=== PATIENT | male | born 1945 | race Caucasian/White ===

== ENCOUNTER 2020-03-09 07:46 | Inpatient (IN) | payer OTHER, MEDICARE ==
[2020-03-09] MEDS ORDERED: ACETAMINOPHEN TAB 325 MG TAB PO PRN (08:03)
[2020-03-09] MEDS ORDERED: NALOXONE 0.4 MG/ML 1 ML VIAL IV PRN (08:03)
[2020-03-09] MEDS ORDERED: IBUPROFEN 400 MG TAB PO PRN (08:03)
[2020-03-09] MEDS ORDERED: HYDROmorphone 0.5 MG/0.5 ML SYRINGE IVP PRN (08:03)
[2020-03-09 08:11] LABS: Basophils % (A) 0 %; Eosinophils # (A) 0.1 k/uL (0-0.7); Eosinophils % (A) 1 %; HCT 38.2 % (39.0-53.0); HGB 12.4 gm/dL (13.0-17.5); Lymphocytes # (A) 1.1 k/uL (1.0-4.8); Lymphocytes % (A) 12 %; MCH 32.2 pg (25.0-35.0); MCHC 32.5 g/dL (31.0-37.0); MCV 99.2 fL (80.0-100.0); Monocytes # (A) 0.6 k/uL (0-1.0); Monocytes % (A) 7 %; Neutrophils # (A) 6.5 k/uL (1.3-7.7); Neutrophils % (A) 77 %; Platelet Count 138 k/uL (150-450); RBC 3.85 m/uL (4.30-5.90); RDW 13.8 % (11.5-15.5); WBC 8.5 k/uL (3.8-10.6)
--- NOTE | 2020-03-09 08:14 | ED ---
General Adult HPI - General Chief complaint: Shortness of Breath Stated complaint: Pulmonary embolism, Bradycardia, SOB Time Seen by Provider: 03/09/20 07:49 Source: EMS, RN notes reviewed, old records reviewed Mode of arrival: EMS Limitations: no limitations - History of Present Illness Initial comments: 74-year-old male presenting as a transfer from outside facility for evaluation treatment of pulmonary embolism. Patient woke from sleep with pleuritic chest pain. He had received a workup including CT angiography which showed a right lower lobe pulmonary emboli. Patient was initiated on Lovenox and transferred for further evaluation and treatment. He denies cough or fever. He denies central chest pain. He states his pain is much better after medication. - Related Data Allergies Allergy/AdvReac Type Severity Reaction Status Date / Time No Known Allergies Allergy Verified 03/09/20 07:57 Review of Systems ROS Statement: Those systems with pertinent positive or pertinent negative responses have been documented in the HPI. ROS Other: All systems not noted in ROS Statement are negative. Past Medical History Past Medical History: Hypertension, Myocardial Infarction ([place]), Pulmonary Embolus ([place]) History of Any Multi-Drug Resistant Organisms: None Reported Past Surgical History: Appendectomy, Back Surgery, Heart Catheterization With Stent, Tonsillectomy Past Psychological History: No Psychological Hx Reported Smoking Status: Never smoker Past Alcohol Use History: None Reported Past Drug Use History: None Reported General Exam Limitations: no limitations General appearance: alert, in no apparent distress Head exam: Present: atraumatic, normocephalic Eye exam: Present: normal appearance, PERRL ENT exam: Present: normal exam Neck exam: Present: normal inspection. Absent: tenderness, meningismus Respiratory exam: Present: normal lung sounds bilaterally. Absent: respiratory distress, wheezes Cardiovascular Exam: Present: regular rate, normal rhythm GI/Abdominal exam: Present: soft. Absent: distended, tenderness, guarding, rebound Extremities exam: Present: normal inspection, normal capillary refill Neurological exam: Present: alert, oriented X3, CN II-XII intact. Absent: motor sensory deficit Psychiatric exam: Present: normal affect, normal mood Skin exam: Present: warm, dry, intact. Absent: cyanosis, diaphoretic Course Vital Signs 03/09/20 03/09/20 07:49 08:09 Temperature 98.0 F Pulse Rate 57 L 63 Respiratory 18 18 Rate Blood Pressure 139/86 119/75 O2 Sat by Pulse 98 99 Oximetry EKG Findings - EKG Comments: EKG Findings:: EKG: Sinus bradycardia, no ST segment elevation, rate of 54, ID interval 182 QRS duration 90, QTC 421 Medical Decision Making - Medical Decision Making 74-year-old male who had presented from outside hospital as transfer for pulmonary emboli. Patient had return laboratory testing performed which showed a white blood cell count 8.5, hemoglobin 12.9, platelets were 157. He had negative troponin, normal electrolytes, normal kidney function. He was given Lovenox. He will be continued on Lovenox. He will be admitted to internal medicine at this institution. - Lab Data Result diagrams: 03/09/20 08:02 Lab Results 03/09/20 Range/Units 08:02 WBC 8.5 (3.8-10.6) k/uL RBC 3.85 L (4.30-5.90) m/uL Hgb 12.4 L (13.0-17.5) gm/dL Hct 38.2 L (39.0-53.0) % MCV 99.2 (80.0-100.0) fL MCH 32.2 (25.0-35.0) pg MCHC 32.5 (31.0-37.0) g/dL RDW 13.8 (11.5-15.5) % Plt Count 138 L (150-450) k/uL Neutrophils % 77 % Lymphocytes % 12 % Monocytes % 7 % Eosinophils % 1 % Basophils % 0 % Neutrophils # 6.5 (1.3-7.7) k/uL Lymphocytes # 1.1 (1.0-4.8) k/uL Monocytes # 0.6 (0-1.0) k/uL Eosinophils # 0.1 (0-0.7) k/uL Basophils # 0.0 (0-0.2) k/uL Disposition Clinical Impression: Pulmonary embolism Disposition: ADMITTED IP TO THIS [facility] Condition: Stable Is patient prescribed a controlled substance at d/c from ED?: No Referrals: Boy Mercado MD [Primary Care Provider] - 1-2 days Decision to Admit Reason: Admit from EC Decision Date: 03/09/20 Decision Time: 08:19
[2020-03-09] MEDS ORDERED: ENOXAPARIN 80 MG/0.8 ML SYRINGE SQ ONE (08:15)
[2020-03-09 08:27] LABS: ALT 27 U/L (4-49); AST 28 U/L (17-59); African American GFR (CKD) >90 (>60 ml/min/1.73 sqM); Albumin 3.8 g/dL (3.5-5.0); Alkaline Phosphatase 64 U/L (38-126); Anion Gap 3 mmol/L; Blood Urea Nitrogen 16 mg/dL (9-20); Calcium 8.7 mg/dL (8.4-10.2); Carbon Dioxide 29 mmol/L (22-30); Chloride 106 mmol/L (98-107); Glucose 121 mg/dL (74-99); Magnesium 1.9 mg/dL (1.6-2.3); Non-African American GFR(CKD) 81 (>60 ml/min/1.73 sqM); Potassium 4.9 mmol/L (3.5-5.1); Sodium 138 mmol/L (137-145); Total Protein 6.3 g/dL (6.3-8.2)
[2020-03-09 08:28] LABS: Partial Thromboplastin Time 24.8 sec (22.0-30.0); Prothrombin Time 10.1 sec (9.0-12.0)
[2020-03-09 08:42] VITALS: RESP 18
--- NOTE | 2020-03-09 12:56 | ECHOF ---
Referral Reason:Rule out heart disease MEASUREMENTS -------- HEIGHT: 152.4 cm WEIGHT: 81.6 kg BP: RVIDd: 3.5 cm (< 3.3) IVSd: 1.1 cm (0.6 - 1.1) LVIDd: 4.9 cm (3.9 - 5.3) LVPWd: 1.4 cm (0.6 - 1.1) IVSs: 1.5 cm LVIDs: 3.7 cm LVPWs: 1.2 cm LA Diam: 4.2 cm (2.7 - 3.8) LAESV Index (A-L): 35.63 ml/m Ao Diam: 3.3 cm (2.0 - 3.7) AV Cusp: 1.6 cm (1.5 - 2.6) MV EXCURSION: 22.560 mm (> 18.000) MV EF SLOPE: 108 mm/s (70 - 150) EPSS: 1.1 cm MV E Kostas: 0.61 m/s MV DecT: 161 ms MV A Kostas: 0.68 m/s MV E/A Ratio: 0.89 RAP: 5.00 mmHg RVSP: 28.73 mmHg FINDINGS -------- Sinus rhythm. This was a technically good study. LV size, wall thickness and systolic function are normal, with an EF greater than 55%. The left bob tricular size is normal. The right ventricle is normal in size. The left atrial size is normal. The right atrial size is normal. Trace to mild aortic regurgitation. Mild mitral annular calcification present. Mild mitral regurgitation is present. Mild tricuspid regurgitation present. Right ventricular systolic pressure is normal at < 35 mmHg. There is no pericardial effusion. CONCLUSIONS -------- 1. LV size, wall thickness and systolic function are normal, with an EF greater than 55%. 2. The left ventricular size is normal. 3. The right ventricle is normal in size. 4. The left atrial size is normal. 5. The right atrial size is normal. 6. Trace to mild aortic regurgitation. 7. Mild mitral annular calcification present. 8. Mild mitral regurgitation is present. 9. Mild tricuspid regurgitation present. 10. There is no pericardial effusion. IMMIGRATION SPECIALIST: Kassidy Gamino RDCS
--- NOTE | 2020-03-09 15:09 | P.HPIM ---
History of Present Illness This is a pleasant 74 years old male with past medical history of hypertension, coronary artery disease status post stent placement x2 with Dr. osei on 2012 and 2013 . He has a new PCP Dr. Ospina at [facility] patient was transfer from [facility] for PE. 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 No GI or urinary symptoms. No fever He denies a smoking, alcohol or illicit drugs. Vitals looked normal with blood pressure 131/76, heart rate 53, temperature is 98.2 and he is saturating 98% on 2 L oxygen via nasal cannula. Unremarkable CBC, INR and BMP. Liver enzymes not elevated. And troponin is negative less than 0.012. Reviewing chart and documents from [facility], EKG showing normal sinus rhythm at [address]-T changes, WBCs 8.5K, hemoglobin 12.9, platelets 150 7K, sodium 139, potassium 4.4, creatinine 1.0, magnesium 2. 0 Viral panel not detected Review of Systems CONSTITUTIONAL: No fever, no malaise, no fatigue. HEENT: No recent visual problems or hearing problems. Denied any sore throat. CARDIOVASCULAR: No orthopnea, PND, no palpitations, no syncope. PULMONARY: No shortness of breath, no cough, no hemoptysis. GASTROINTESTINAL: No diarrhea, no nausea, no vomiting, no abdominal pain. Normoactive bowel sounds. NEUROLOGICAL: No headaches, no weakness, no numbness. HEMATOLOGICAL: Denies any bleeding or petechiae. GENITOURINARY: Denies any burning micturition, frequency, or urgency. MUSCULOSKELETAL/RHEUMATOLOGICAL: Denies any joint pain, swelling, or any muscle pain. ENDOCRINE: Denies any polyuria or polydipsia. Past Medical History Past Medical History: Hypertension, Myocardial Infarction ([place]), Pulmonary Embolus ([place]) Last Myocardial Infarction Date:: 04/25/2013 History of Any Multi-Drug Resistant Organisms: None Reported Past Surgical History: Appendectomy, Back Surgery, Heart Catheterization With Stent, Tonsillectomy Date of Last Stent Placement:: 04/25/2013 Past Psychological History: No Psychological Hx Reported Additional Psychological History / Comment(s): lives with Smoking Status: Never smoker Past Alcohol Use History: None Reported Past Drug Use History: None Reported - Past Family History Mother Family Medical History: Pulmonary Embolus Medications and Allergies Home Medications Medication Instructions Recorded Confirmed Type Aspirin EC [Ecotrin Low Dose] 81 mg PO DAILY 03/09/20 03/09/20 History Atorvastatin Calcium [Lipitor] 40 mg PO HS 03/09/20 03/09/20 History Cholecalciferol [Vitamin D3 (25 2,000 unit PO DAILY 03/09/20 03/09/20 History Mcg = 1000 Iu)] Diclofenac Sodium [Voltaren Gel] 2 gram TOPICAL QID 03/09/20 03/09/20 History Folic Acid 0.8 mg PO DAILY 03/09/20 03/09/20 History Metoprolol Tartrate 25 mg PO BID 03/09/20 03/09/20 History Multivit-Min/FA/Lycopen/Lutein 1 tab PO DAILY 03/09/20 03/09/20 History [Centrum Silver Tablet] Nitroglycerin Sl Tabs [Nitrostat] 0.4 mg SUBLINGUAL Q5M PRN 03/09/20 03/09/20 History [place]-3 Fatty Acids/Fish Oil [Fish 1 cap PO DAILY 03/09/20 03/09/20 History Oil 1,000 mg Softgel] Rivaroxaban [Xarelto] 15 mg PO BID-W/MEALS #60 tab 03/09/20 Rx Super B Complex 1 tab PO DAILY 03/09/20 03/09/20 History Tamsulosin HCl [Flomax] 0.8 mg PO DAILY 03/09/20 03/09/20 History metHOTREXate sodium [Methotrexate] 15 mg PO TU 03/09/20 03/09/20 History predniSONE 5 mg PO DAILY 03/09/20 03/09/20 History Allergies Allergy/AdvReac Type Severity Reaction Status Date / Time No Known Allergies Allergy Verified 03/09/20 08:43 Physical Exam Vitals: Vital Signs Temp Pulse Pulse Resp BP BP Pulse Ox 03/09/20 09:21 98.2 F 53 L 131/76 98 03/09/20 08:09 63 18 119/75 99 03/09/20 07:49 98.0 F 57 L 18 139/86 98 Intake and Output 03/08/20 03/09/20 03/09/20 22:59 06:59 14:59 Other: Weight 81.647 kg GENERAL: The patient is alert and oriented x3, not in any acute distress. Well developed, well nourished. HEENT: Pupils are round and equally reacting to light. EOMI. No scleral icterus. No conjunctival pallor. Normocephalic, atraumatic. No pharyngeal erythema. No thyromegaly. CARDIOVASCULAR: S1 and S2 present. No murmurs, rubs, or gallops. PULMONARY: Chest is clear to auscultation, no wheezing or crackles. ABDOMEN: Soft, nontender, nondistended, normoactive bowel sounds. No palpable organomegaly. MUSCULOSKELETAL: No joint swelling or deformity. EXTREMITIES: No cyanosis, clubbing, or pedal edema. NEUROLOGICAL: Gross neurological examination did not reveal any focal deficits. SKIN: No rashes. No petechiae Results CBC & Chem 7: 03/09/20 08:02 03/09/20 08:02 Labs: Abnormal Lab Results - Last 24 Hours (Table) 03/09/20 03/09/20 Range/Units 08:02 08:02 RBC 3.85 L (4.30-5.90) m/uL Hgb 12.4 L (13.0-17.5) gm/dL Hct 38.2 L (39.0-53.0) % Plt Count 138 L (150-450) k/uL Glucose 121 H (74-99) mg/dL Thrombosis Risk Factor Assmnt - Choose All That Apply Any of the Below Risk Factors Present?: Yes Each Factor Represents 1 point: Medical pt on bed rest Other Risk Factors: Yes Each Risk Factor Represents 2 Points: Age 61-74 years Each Risk Factor Represents 3 Points: Family history of DVT/PE Other congenital or acquired thrombophilia - If yes, enter type in comment: No Thrombosis Risk Factor Assessment Total Risk Factor Score: 6 Thrombosis Risk Factor Assessment Level: High Risk Assessment and Plan Assessment: Acute pulmonary embolism Hypertension History of coronary artery disease status post stent 2 Plan: This is a pleasant 74 years old male who presents with PE. Continue with a blood thinner. Check echocardiogram. Pulmonary consult. Continue with xarelto and find the copay Labs and medication were reviewed.. Continue same treatment. Continue with symptomatic treatment. Resume home medication. Monitor lytes and vitals. DVT and GI prophylaxis. Further recommendations depends on the clinical course of the patient DVT prophylaxis: xarelto GI Prophylaxis: Pepcid Prognosis is guarded
[2020-03-09 15:30] VITALS: BP 133/84; PULSE 64; TEMP 98.1
--- NOTE | 2020-03-09 16:47 | P.CNPUL ---
History of Present Illness Consult date: 03/09/20 Requesting physician: Jian Vasquez Reason for consult: chest pain, abnormal CXR/CT Chief complaint: Right-sided pleuritic chest pain History of present illness: This is a very pleasant 74-year-old gentleman who follows with the [facility] system out of bed ask. He has a history of rheumatoid arthritis utilizing methotrexate and prednisone 5 mg daily, hyperlipidemia, hypertension, coronary artery disease with previous stent placement in 2003 in 2012, BPH He has a remote history of chronic tobacco dependence. He presented to [facility] early this morning after waking with left-sided chest discomfort. The pain was quite sharp and stabbing in nature. Worsening with deep breathing. Mostly behind his scapula and shoulder. CT angiogram at [place] revealed a right lower lobe pulmonary emboli. Nothing noted in the left. He was initiated on Lovenox 80 mg subcu and transferred here for further evaluation. He is seen today in consultation on the regular medical floor. He is awake and alert in no acute distress. His pain has subsided somewhat. He denies any significant s hortness of breath, cough or congestion. No hemoptysis. He denies any recent prolonged travels, recent surgery, recent injury. No previous history of pulmonary embolism or DVT. No family history of PE. This appears to be an unprovoked event. Echocardiogram reveals no evidence of right heart strain. He has preserved left ventricular systolic function with ejection fraction greater than 55%. White count 8.5. Humulin 12.4. Platelet count 138. Sodium 138. Potassium 4.9. Creatinine 0.93. GFR 81. Troponin negative. Review of Systems REVIEW OF SYSTEMS: CONSTITUTIONAL: Denies any recent significant weight loss or weight gain. EYES: Denies change in vision. EARS, NOSE, MOUTH, THROAT: Denies headaches, denies sore throat. CARDIOVASCULAR: Left-sided pleuritic chest pain, no palpitations or syncopal episodes. RESPIRATORY: Denies shortness of breath, cough, congestion or hemoptysis. GASTROINTESTINAL: Denies change in appetite, denies abdominal pain GENITOURINARY: Denies hematuria, denies infections. MUSKULOSKELETAL: Denies pain, denies swelling. INTEGUMENTARY: Denies rash, denies eczema. NEUROLOGICAL: Denies recent memory loss, no recent seizure activity. PSYCHIATRIC: Denies anxiety, denies depression. HEMATOLOGIC/LYMPHATIC: Denies anemia, denies enlarged lymph nodes. Past Medical History Past Medical History: Hypertension, Myocardial Infarction ([place]), Pulmonary Embolus ([place]) Last Myocardial Infarction Date:: 04/25/2013 History of Any Multi-Drug Resistant Organisms: None Reported Past Surgical History: Appendectomy, Back Surgery, Heart Catheterization With Stent, Tonsillectomy Date of Last Stent Placement:: 04/25/2013 Past Psychological History: No Psychological Hx Reported Additional Psychological History / Comment(s): lives with Smoking Status: Never smoker Past Alcohol Use History: None Reported Past Drug Use History: None Reported - Past Family History Mother Family Medical History: Pulmonary Embolus Medications and Allergies Home Medications Medication Instructions Recorded Confirmed Type Aspirin EC [Ecotrin Low Dose] 81 mg PO DAILY 03/09/20 03/09/20 History Atorvastatin Calcium [Lipitor] 40 mg PO HS 03/09/20 03/09/20 History Cholecalciferol [Vitamin D3 (25 2,000 unit PO DAILY 03/09/20 03/09/20 History Mcg = 1000 Iu)] Folic Acid 0.8 mg PO DAILY 03/09/20 03/09/20 History Metoprolol Tartrate 25 mg PO BID 03/09/20 03/09/20 History Multivit-Min/FA/Lycopen/Lutein 1 tab PO DAILY 03/09/20 03/09/20 History [Centrum Silver Tablet] Nitroglycerin Sl Tabs [Nitrostat] 0.4 mg SUBLINGUAL Q5M PRN 03/09/20 03/09/20 History [place]-3 Fatty Acids/Fish Oil [Fish 1 cap PO DAILY 03/09/20 03/09/20 History Oil 1,000 mg Softgel] Rivaroxaban [Xarelto] 15 mg PO BID-W/MEALS #60 tab 03/09/20 Rx Super B Complex 1 tab PO DAILY 03/09/20 03/09/20 History Tamsulosin HCl [Flomax] 0.8 mg PO DAILY 03/09/20 03/09/20 History metHOTREXate sodium [Methotrexate] 15 mg PO TU 03/09/20 03/09/20 History predniSONE 5 mg PO DAILY 03/09/20 03/09/20 History Allergies Allergy/AdvReac Type Severity Reaction Status Date / Time No Known Allergies Allergy Verified 03/09/20 08:43 Physical Exam Vitals: Vital Signs Temp Pulse Pulse Resp BP BP Pulse Ox 03/09/20 15:00 98.1 F 64 133/84 99 03/09/20 09:21 98.2 F 53 L 131/76 98 03/09/20 08:09 63 18 119/75 99 03/09/20 07:49 98.0 F 57 L 18 139/86 98 Intake and Output 03/09/20 03/09/20 03/09/20 06:59 14:59 22:59 Other: # Voids 1 Weight 81.647 kg GENERAL EXAM: Alert, very pleasant 74-year-old gentleman, on 2 L nasal cannula, comfortable in no apparent distress. HEAD: Normocephalic. EYES: Normal reaction of pupils, equal size. NOSE: Clear with pink turbinates. THROAT: No erythema or exudates. NECK: No masses, no JVD. CHEST: No chest wall deformity. LUNGS: Equal air entry with no crackles, wheeze, rhonchi or dullness. CVS: S1 and S2 normal with no audible murmur, regular rhythm. ABDOMEN: No hepatosplenomegaly, normal bowel sounds, no guarding or rigidity. SPINE: No scoliosis or deformity SKIN: No rashes CENTRAL NERVOUS SYSTEM: No focal deficits, tone is normal in all 4 extremities. EXTREMITIES: There is no peripheral edema. No clubbing, no cyanosis. Peripheral pulses are intact. Results - Laboratory Findings CBC and BMP: 03/09/20 08:02 03/09/20 08:02 PT/INR, D-dimer PT 10.1 sec (9.0-12.0) 03/09/20 08:02 INR 1.0 (<1.2) 03/09/20 08:02 Abnormal lab findings: Abnormal Labs 03/09/20 03/09/20 08:02 08:02 RBC 3.85 L Hgb 12.4 L Hct 38.2 L Plt Count 138 L Glucose 121 H Assessment and Plan Assessment: 1 Acute pulmonary embolism, unprovoked 2 Pleurisy 3 History of coronary artery disease with previous stent placement 4 Hypertension 5 Hyperlipidemia 6 BPH Plan: The patient was seen and evaluated by Dr. Weller Records reviewed from [facility] and could be discharged home Currently on room air Will need lifelong anticoagulation as PE appears unprovoked Follow-up closely with his PCP I, the cosigning physician, performed a history & physical examination of the patient. Lungs sounds are clear. Maintaining good O2 saturations in the 90s on room air. I discussed the assessment and plan of care with my nurse practitioner, Rebecca Graff. I attest to the above note as dictated by her. Time with Patient: Greater than 30
[2020-03-09] MEDS ORDERED: RIVAROXABAN 15 MG TAB PO SCH (17:30)
[2020-03-09] MEDS ORDERED: ENOXAPARIN 80 MG/0.8 ML SYRINGE SQ SCH (21:00)
== END 2020-03-09 17:00 | disposition home or self-care (01) | DRG 176 ==
LOC: EC 07:46 → 4SSUR 08:03
PROVIDERS: ADMIT Hospitalist; ATTEND Hospitalist
DX: I26.99 Other pulmonary embolism without acute cor pulmonale (principal); M06.9 Rheumatoid arthritis, unspecified; E78.5 Hyperlipidemia, unspecified; I10 Essential (primary) hypertension; I25.10 Atherosclerotic heart disease of native coronary artery without angina pectoris; I25.2 Old myocardial infarction; N40.0 Benign prostatic hyperplasia without lower urinary tract symptoms; R09.1 Pleurisy; Z79.01 Long term (current) use of anticoagulants; Z79.82 Long term (current) use of aspirin; Z79.899 Other long term (current) drug therapy; Z79.52 Long term (current) use of systemic steroids; Z86.711 Personal history of pulmonary embolism; Z87.891 Personal history of nicotine dependence; Z95.5 Presence of coronary angioplasty implant and graft; Z90.49 Acquired absence of other specified parts of digestive tract; Z90.89 Acquired absence of other organs; Z86.79 Personal history of other diseases of the circulatory system
CPT/HCPCS: 36415; 80053; 83735; 84484; 85025; 85610; 85730; 93005; 93306; 99285

== ENCOUNTER → 2021-11-28 | Outpatient (CLI) | payer MEDICARE ==
--- NOTE | 2021-11-28 15:32 | P.SLEEP ---
History of Present Illness DATE: 11/28/2021 CONSULTATION/NEW PATIENT EVALUATION HISTORY OF PRESENT ILLNESS/SLEEP-WAKE EVALUATION: 76year old gentleman had b een evaluated in the sleep center for possible obstructive sleep apnea hypopnea syndrome. SLEEP SCHEDULE: Usually sleep schedule 10 PM to 7:30 AM 7 days a week. FALLING ASLEEP: Usually no problems with the falling to sleep, although patient has TV set and bedroom. DURING SLEEP: Patient usually sleeps on the side position, he snores. Patient wakes up from sleep 3 times with 2 episodes of nocturia. He was told about episodes of stop breathing during the sleep while he was in the hospital. No history of hypnogogical hallucinations, sleep paralysis, or cataplexy. DURING THE DAY/WAKE STATE: In the morning patient wake up tired, has difficulties to pay attention, falling asleep during the day. Patient has problems with memory, concentration, irritability, depression, anxiety, sexual dysfunction. [place] sleepiness scale is increased to 14. Patient take naps at 3 PM. PAST MEDICAL HISTORY: Hypertension, coronary artery disease, hyperlipidemia, rheumatoid arthritis, pulmonary embolism, acid reflux, restless leg symptoms. PAST SURGICAL HISTORY: [place] session, tonsillectomy, appendectomy. MEDICATIONS: Methotrexate 15 mg once a week, atorvastatin 40 mg once a day, metoprolol 25 mg twice a day, Tums Solazine 0.4 mg once a day, aspirin 81 mg once a day, prednisone 2.5 mg once a day, Xarelto 10 mg once a day. SOCIAL HISTORY: Positive for smoking quit in 1989, alcohol consumption none. FAMILY HISTORY: Hypertension, sleep apnea, arthritis. REVIEW OF SYSTEMS: Snoring, multiple awakenings from sleep, sleepiness during the day.. No fevers. No double vision. No recent chest pain. No shortness of breath. No abdominal pain. No bleeding episodes. No blood in urine. No seizure episodes. PHYSICAL EXAMINATION: GENERAL: A pleasant patient without any distress. VITAL SIGNS: BP 135/79 , HR 48 , RR 14 , weight 173.4 pounds, height 5 foot 8- 1/2 inches, body mass index 25.9 . HEENT: PERRLA, EOMI. Evaluation of oropharynx showed tongue protrudes midline, low position of soft palate Mallampati4. NECK: Supple. No JVD. Thyroid is not palpable. 16 inches in circumference. LUNGS: Clear to percussion and to auscultation. Good air exchange. No wheezing or rhonchi. HEART: S1, S2 regular. No murmurs, gallops or rubs. ABDOMEN: Soft and nontender. Bowel sounds are present. No organomegaly appreciated. EXTREMITIES: No clubbing or cyanosis. 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 Cranial nerves 2 to 7 intact. There is no fasciculation or atrophy noted. No focal deficits observed. ASSESSMENT: 1. Snoring, witnessed episodes of sleep apneas, multiple awakenings from sleep, extremely low position of soft palate Mallampati 4. Excessive daytime sleepiness is [place] Sleepiness Scale 14. Obstructive sleep apnea hypopnea syndrome. 2. History of restless leg symptoms. 3 hypertension. 4. Coronary artery disease status post stent insertion. 5 rheumatoid arthritis diagnosed recently. 6. History of pulmonary embolism in 2019. 7. Hyperlipidemia. 8. Acid reflux. 9. Status post tonsillectomy. 10. Status post appendectomy. PLAN: 1. Polysomnography for evaluation of patient's breathing during sleep. 2. CPAP/BiPAP titration if sleep study confirms obstructive sleep apnea- hypopnea syndrome. 3. Preferable position during sleep on the side. 4. No driving if patient feels any sleepiness. Patient is aware of civil and criminal liability for unsafe driving. 5. Sleep hygiene with regular sleep time for at least 7.5-8 hours. 6. Watching weight. Thank you very much for referring this patient for consultation. Sincerely, Carrington Powell MD, PhD, FAASM. Diplomat of [employer], Sleep Medicine Board by [employer] [facility] [place] Past Medical History Past Medical History: Hypertension, Myocardial Infarction ([place]), Pulmonary Embolus ([place]) Last Myocardial Infarction Date:: 04/25/2013 History of Any Multi-Drug Resistant Organisms: None Reported Past Surgical History: Appendectomy, Back Surgery, Heart Catheterization With Stent, Tonsillectomy Date of Last Stent Placement:: 04/25/2013 Past Psychological History: No Psychological Hx Reported Additional Psychological History / Comment(s): lives with Smoking Status: Never smoker Past Alcohol Use History: None Reported Past Drug Use History: None Reported - Past Family History Mother Family Medical History: Pulmonary Embolus Medications and Allergies Home Medications Medication Instructions Recorded Confirmed Type Aspirin EC [Ecotrin Low Dose] 81 mg PO DAILY 03/09/20 03/09/20 History Atorvastatin Calcium [Lipitor] 40 mg PO HS 03/09/20 03/09/20 History Cholecalciferol [Vitamin D3 (25 2,000 unit PO DAILY 03/09/20 03/09/20 History Mcg = 1000 Iu)] Folic Acid 0.8 mg PO DAILY 03/09/20 03/09/20 History Metoprolol Tartrate 25 mg PO BID 03/09/20 03/09/20 History Multivit-Min/FA/Lycopen/Lutein 1 tab PO DAILY 03/09/20 03/09/20 History [Centrum Silver Tablet] Nitroglycerin Sl Tabs [Nitrostat] 0.4 mg SUBLINGUAL Q5M PRN 03/09/20 03/09/20 History Avon-3 Fatty Acids/Fish Oil [Fish 1 cap PO DAILY 03/09/20 03/09/20 History Oil 1,000 mg Softgel] Rivaroxaban [Xarelto] 15 mg PO BID-W/MEALS #60 tab 03/09/20 Rx Super B Complex 1 tab PO DAILY 03/09/20 03/09/20 History Tamsulosin HCl [Flomax] 0.8 mg PO DAILY 03/09/20 03/09/20 History metHOTREXate sodium [Methotrexate] 15 mg PO TU 03/09/20 03/09/20 History predniSONE 5 mg PO DAILY 03/09/20 03/09/20 History Allergies Allergy/AdvReac Type Severity Reaction Status Date / Time No Known Allergies Allergy Verified 03/09/20 08:43 Sleep Note - Sleep Note Sleep Note: Temperature: Pulse Rate: Respiratory Rate: Blood Pressure: SpO2: Height: Weight: BMI: Neck Circumference:
== END ==
LOC: SLEEP 14:36
PROVIDERS: ATTEND Internal Medicine
DX: G47.33 Obstructive sleep apnea (adult) (pediatric) (principal); I10 Essential (primary) hypertension; I25.10 Atherosclerotic heart disease of native coronary artery without angina pectoris; M06.9 Rheumatoid arthritis, unspecified; E78.5 Hyperlipidemia, unspecified; K21.9 Gastro-esophageal reflux disease without esophagitis; Z90.89 Acquired absence of other organs; Z86.711 Personal history of pulmonary embolism; Z90.49 Acquired absence of other specified parts of digestive tract; Z95.5 Presence of coronary angioplasty implant and graft; Z79.01 Long term (current) use of anticoagulants; Z79.899 Other long term (current) drug therapy; Z87.891 Personal history of nicotine dependence
CPT/HCPCS: 99211

== ENCOUNTER → 2022-04-24 | Outpatient (CLI) | payer MEDICARE ==
--- NOTE | 2022-04-24 17:32 | P.PN ---
Subjective DATE: 04/24/2022 FOLLOW UP VISIT. Patient with obstructive sleep apnea hypopnea syndrome return to sleep center for follow-up visit. Recently patient had sleep study which documented obstructive sleep apnea hypopnea syndrome. Patient was initiated on PAP therapy and today is first visit after treatment was started. Patient was able to use PAP equipment every night for the whole night. The patient does not have significant problems with the mask, PAP pressure and humidification. [place] sleepiness scale is increased to 16. I checked information from PAP unit. PAP unit pressure 5-15, average 13.0 cm H2O. Usage is 97 % for more then 4 hours, average 6.5 hours per night. Leak is 14.6 l/m, which is in acceptable range. Apnea Hypopnea Index is 2.0, which is normal. MEDICATIONS:1. Methotrexate 2. Atorvastatin 40 mg once a day 3. Metoprolol 25 mg twice a day 4. Flomax During physical exam: GENERAL: A pleasant patient without any distress. VITAL SIGNS: BP 181/70, HR 58, RR 16 , weight 178, temperature 97.8, oxygen saturation at room air 97 . HEENT: PERRLA, EOMI.low position of soft palate, Mallapati 4 . NECK: Supple. No JVD. LUNGS: Clear to percussion and to auscultation. Good air exchange. No wheezing or rhonchi. HEART: S1, S2 regular. ABDOMEN: Soft and nontender.[] EXTREMITIES: No clubbing or cyanosis. 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 No focal deficit. Impressions: 1. Obstructive sleep apnea-hypopnea syndrome. Patient demonstrated great compliance with treatment, benefiting from treatment. 2. Coronary artery disease. 3. Hypertension. 4. Rheumatoid arthritis. 5. Hyperlipidemia. 6. History of pulmonary embolism in 2019. 7. Acid reflux. 8. Status post tonsillectomy. 9. Status post adenoidectomy. Plan: 1. Continue using PAP equipment every night for the whole night. 2. To change air filter at least 1-2 times per month. 3. PAP unit should stay lower then position of the head. 4. Advised patient to remove all remaining water from humidifier canister daily and make it dry after each usage. Refill canister with fresh distilled water before each usage. 5. Sleep hygiene with regular time in bed for at least 8 hours. 6. Precautions related to driving. No driving if feel any sleepiness. 7. I will maintain prescription for PAP supplies including mask, tube, filters. 8. Follow up visit in 6 months or earlier if patient has any problems. 9. Watching weight. Thank you very much for allowing me to participate in the management of your patient. Carrington Powell MD, PhD, FAASM. Diplomat of [place] [employer], Sleep Medicine Board by [employer]ator [employer] Director [facility] [place]
== END ==
LOC: SLEEP 13:22
PROVIDERS: ATTEND Internal Medicine
DX: G47.33 Obstructive sleep apnea (adult) (pediatric) (principal); Z99.89 Dependence on other enabling machines and devices; I10 Essential (primary) hypertension; E78.5 Hyperlipidemia, unspecified; K21.9 Gastro-esophageal reflux disease without esophagitis; M06.9 Rheumatoid arthritis, unspecified; I25.10 Atherosclerotic heart disease of native coronary artery without angina pectoris; Z86.711 Personal history of pulmonary embolism; Z90.89 Acquired absence of other organs; Z79.899 Other long term (current) drug therapy
CPT/HCPCS: 99212

== ENCOUNTER → 2023-01-01 | Outpatient (CLI) | payer MEDICARE ==
--- NOTE | 2023-01-01 12:16 | P.PN ---
Subjective DATE: 01/01/2023 FOLLOW UP VISIT. Patient with obstructive sleep apnea hypopnea syndrome return to sleep center for follow-up visit. Information from previous visit have been reviewed. Patient is using PAP equipment every night for the whole night, getting PAP supplies in time. Patient sometimes wakes up in the middle of the night and feel that pressure is too high for him. [place] sleepiness scale is increased to 13. I checked information from PAP unit. PAP unit pressure 5-18, average 13 cm H2O. Usage is 70 % for more then 4 hours, average 6.7 hours per night. Leak is 19 l/m, which is in acceptable range. Apnea Hypopnea Index is 2.5, which is normal. MEDICATIONS:1. Humira 40 mg twice a week 2. Methotrexate once a week 3. Xarelto 10 mg once a day 4. Metoprolol 25 mg once a day 5. Flomax 0.4 mg once a day 6. Atorvastatin 40 mg once a day During physical exam: GENERAL: A pleasant patient without any distress. VITAL SIGNS: BP 138/79, HR 60, RR 12, weight 180.8, temperature 97.3, oxygen saturation at room air 97 % . HEENT: PERRLA, EOMI.low position of soft palate, Mallapati 4 . NECK: Supple. No JVD. LUNGS: Clear to percussion and to auscultation. Good air exchange. No wheezing or rhonchi. HEART: S1, S2 regular. ABDOMEN: Soft and nontender.[] EXTREMITIES: No clubbing or cyanosis. 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 No focal deficit. I made some adjustments for CPAP unit. EPR from 0 was changed to 3. I reduced level of pressure to the range 512 centimeters of water. Impressions: 1. Obstructive sleep apnea-hypopnea syndrome. Patient demonstrated good compliance with treatment, benefiting from treatment. 2. Hypertension. 3. Coronary artery disease. 4. Rheumatoid arthritis. 5. History of PE in 2019. 6. Hyperlipidemia. 7. Acid reflux. 8. Status post tonsillectomy. 9. Status post adenoidectomy. Plan: 1. Continue using PAP equipment every night for the whole night. 2. To change air filter at least 1-2 times per month. 3. PAP unit should stay lower then position of the head. 4. Advised patient to remove all remaining water from humidifier canister daily and make it dry after each usage. Refill canister with fresh distilled water before each usage. 5. Sleep hygiene with regular time in bed for at least 8 hours. 6. Precautions related to driving. No driving if feel any sleepiness. 7. I will maintain prescription for PAP supplies including mask, tube, filters. 8. Follow up visit in 6 months or earlier if patient has any problems. 9. Watching weight. Thank you very much for allowing me to participate in the management of your patient. Carrington Powell MD, PhD, FAASM. Diplomat of [employer], Sleep Medicine Board by [employer] [facility] [place]
== END ==
LOC: 3 N SLEEP 11:40
PROVIDERS: ATTEND Internal Medicine
DX: G47.33 Obstructive sleep apnea (adult) (pediatric) (principal); I10 Essential (primary) hypertension; M06.9 Rheumatoid arthritis, unspecified; E78.5 Hyperlipidemia, unspecified; I25.10 Atherosclerotic heart disease of native coronary artery without angina pectoris; K21.9 Gastro-esophageal reflux disease without esophagitis; Z79.01 Long term (current) use of anticoagulants; Z79.899 Other long term (current) drug therapy; Z86.711 Personal history of pulmonary embolism; Z98.890 Other specified postprocedural states; Z99.89 Dependence on other enabling machines and devices
CPT/HCPCS: 99212